=== PATIENT | female | born 1960 | race American Indian/Alaskan Native ===

== ENCOUNTER 2018-05-16 07:04 | Day surgery (SDC) | payer OTHER ==
[2018-05-15 12:00] VITALS: BMI 28.9
[2018-05-16 08:36] VITALS: TEMP 97.1
[2018-05-16 09:29] VITALS: BP 121/78; PULSE 55
--- NOTE | 2018-05-19 15:12 | PATH ---
Surgical Pathology Report Patient Name: MISSY ROMANO [facility]. Rec. #: [id number] /Age/Gender: 1960 (Age: 57) / F Account: [id number] Location: U-ENDOSCOPY Taken: 05/16/2018 Received: 05/16/2018 Reported: 05/19/2018 Physicians: Dixon Brown M.D. Specimen(s) Received A: 2ND PORTION DUODENUM AND BULB B: ANTRUM C: MID TRANSVERSE COLON D: DESCENDING COLON Clinical History Occult GI bleed, colon cancer screening Postoperative diagnosis: Gastritis, colon polyps, diverticulosis Final Diagnosis A. DUODENUM, SECOND PORTION AND DUODENAL BULB, BIOPSY: DUODENAL MUCOSA WITHOUT SIGNIFICANT PATHOLOGIC FINDINGS. B. STOMACH, ANTRUM, BIOPSY: GASTRIC ANTRAL MUCOSA WITH MILD CHRONIC GASTRITIS. IMMUNOHISTOCHEMICAL STAIN FOR H. PYLORI IS NEGATIVE. C. MID TRANSVERSE COLON, POLYPS, BIOPSY: POLYPOID COLONIC MUCOSA WITH FOCAL SUPERFICIAL HYPERPLASTIC FEATURES. D. DESCENDING COLON, POLYPS, BIOPSY: HYPERPLASTIC POLYP(S). Electronically Signed Katherin Valenzuela M.D. Gross Description A. Received in formalin, labeled "biopsy second portion of duodenum and duodenal bulb" are 3 valadez, irregular portions of soft tissue averaging 0.4 cm. in greatest dimension. The specimens are submitted in toto in one cassette. B. Received in formalin, labeled "biopsy antrum" are 4 valadez, irregular portions of soft tissue ranging from 0.2-0.4 cm. in greatest dimension. The specimens are submitted in toto in one cassette. C. Received in formalin, labeled "biopsy mid transverse colon polyps" are 4 valadez, irregular portions of soft tissue ranging from 0.1-0.4 cm. in greatest dimension. The specimens are submitted in toto in one cassette. D. Received in formalin, labeled "polyps descending colon" are 6 valadez, irregular portions of soft tissue ranging from 0.1-0.6 cm. in greatest dimension. The specimens are submitted in toto in one cassette. 05/16/201805/16/2018
== END 2018-05-16 09:38 | disposition home or self-care (01) ==
LOC: JASU-ENDO 07:04
PROVIDERS: ATTEND Internal Medicine Gastroenterology
PROC: 0DBL8ZX Excision of Transverse Colon, Via Natural or Artificial Opening Endoscopic, Diagnostic (ICD-10-PCS; 2018-05-16)
PROC: 0DB68ZX Excision of Stomach, Via Natural or Artificial Opening Endoscopic, Diagnostic (ICD-10-PCS; 2018-05-16)
PROC: 0DBM8ZX Excision of Descending Colon, Via Natural or Artificial Opening Endoscopic, Diagnostic (ICD-10-PCS; principal; 2018-05-16 08:00)
DX: D12.4 Benign neoplasm of descending colon (principal); D12.3 Benign neoplasm of transverse colon; K57.30 Diverticulosis of large intestine without perforation or abscess without bleeding; K29.70 Gastritis, unspecified, without bleeding
CPT/HCPCS: 88305-TC; 88342-TC

== ENCOUNTER 2019-03-30 23:04 | Inpatient (IN) | payer OTHER ==
[2019-03-30 23:26] VITALS: BMI 25.6
--- NOTE | 2019-03-31 00:17 | PDOC ---
Attending Attestation - Resident Resident Name: Wilder Rodriguez - ED Attending Attestation I have performed the following: I have examined & evaluated the patient, The case was reviewed & discussed with the resident, I agree w/resident's findings & plan - HPI HPI: 03/31/19 03:15 see resident hpi - Physicial Exam PE: 03/31/19 03:15 see resident exam - Medical Decision Making 03/31/19 03:15 58-year-old female with excessive vomiting throughout the afternoon after receiving IV contrast this morning for a CT of the chest performed at an outside facility Labs consistent with volume depletion with hyponatremia In regards to facial swelling and possible allergic reaction, patient's airway is patent, she is comfortably sleeping on reevaluation after steroids and antihistamines at 3 AM IV fluids infusing We will admit for further management
[2019-03-31] MEDS ORDERED: SODIUM CHLORIDE 0.9% 500 ML INFUS.BAG IV ONE (00:35)
[2019-03-31] MEDS ORDERED: METOCLOPRAMIDE HCL INJECTION 10 MG/2 ML VIAL IVPUSH ONE (00:35)
[2019-03-31] MEDS ORDERED: MAG HYDROX/AL HYDROX/SIMETH 30 ML UNIT-DOSE CUP PO PRN (00:35)
[2019-03-31] MEDS ORDERED: FAMOTIDINE 20 MG/50 ML IVPB 20 MG/50 ML MG IVPB ONE ×2 (00:35→00:39)
[2019-03-31] MEDS ORDERED: METOCLOPRAMIDE HCL INJECTION 10 MG/2 ML VIAL ONE (00:39)
[2019-03-31] MEDS ORDERED: MAG HYDROX/AL HYDROX/SIMETH 30 ML UNIT-DOSE CUP ONE (00:39)
[2019-03-31] MEDS ORDERED: DEXAMETHASONE SOD PHOSPHATE 10 MG/1 ML VIAL IVPUSH ONE (01:05)
--- NOTE | 2019-03-31 01:09 | PDOC ---
History of Present Illness - General Chief Complaint: Vomiting/Diarrhea Stated Complaint: VOMITING/DIARRHEA Time Seen by Provider: 03/31/19 00:13 History Source: Patient - History of Present Illness Initial Comments: 58F PMH NIDDM, HTN, HLD presenting with nausea, nbnb vomiting, and diarrhea since 3pm today. Pt had cardiac CT w/ contrast at [facility] this AM and is concerned about a contrast reaction; called on-call cigar packer and sorter who told her to proceed to ED. notably, pt did eat lunch and a snack at 11:30 and 2pm; N/V/D started at 3pm w/ vomiting first then diarrhea shortly after. Denies abd pain, f /c, cp/sob, dysuria. Son at bedside notes patient has rash/redness on the cheeks under her eyes. Allergy to Zofran Past History - Past Medical History Allergies/Adverse Reactions: Allergies Allergy/AdvReac Type Severity Reaction Status Date / Time ondansetron [From Zofran] Allergy HALLUCINATI Verified 03/30/19 23:23 ON Home Medications: Ambulatory Orders Ibuprofen [Advil -] 800 mg PO PRN PRN 02/04/12 Tramadol HCl 50 mg PO PRN PRN 03/23/15 Valsartan/Hydrochlorothiazide [Diovan Hct 160-25 mg Tablet] 1 combo PO DAILY 11/26 metFORMIN HCL [Metformin ER Osmotic] 1,500 mg PO BID 03/23/15 Aspirin [ASA -] 81 mg PO DAILY 05/15/18 Calcium Carbonate [Tums] 1 tab PO PRN PRN 05/15/18 Cholecalciferol (Vitamin D3) [Vitamin D -] 1,000 unit PO DAILY 05/15/18 Esomeprazole Magnesium [Nexium 24Hr] 40 mg PO DAILY 05/15/18 Fenofibric Acid [Trilipix -] 135 mg PO DAILY 05/15/18 Magnesium Oxide [Magnesium] 400 mg PO DAILY 05/15/18 Multivitamin with Iron [Multivitamins with Iron] 1 tab PO DAILY 05/15/18 Naproxen Sodium [Aleve] 1 tab PO DAILY 05/15/18 Pravastatin Sodium 20 mg PO DAILY 05/15/18 Ranitidine [Zantac -] 150 mg PO BID 05/15/18 Rizatriptan Benzoate [Maxalt] 10 mg PO PRN PRN 05/15/18 Simethicone [Gas Relief] 125 mg PO PRN PRN 05/15/18 Levothyroxine [Synthroid -] 1 tab PO ASDIR 05/16/18 Levothyroxine [Synthroid -] 100 mcg PO DAILY 05/16/18 Mag Carb/Aluminum Hydrox/Algin [Gaviscon Liquid] 30 ml PO PRN PRN #1 oral.susp 05/16/18 Metoprolol Succinate 75 mg PO DAILY 05/16/18 Pantoprazole Sodium [Protonix -] 40 mg PO HS #30 tablet.ec 05/16/18 Amlodipine Besylate 2.5 mg PO HS 04/01/19 Cancer: Yes (THYROID) Cardiac Disorders: Yes COPD: No Diabetes: Yes (NON INSULIN DIABETES) GI Disorders: Yes (ENTERITIS,DIVERTICULOSIS) HTN: Yes Hypercholesterolemia: Yes Liver Disease: Yes (NAFLD) Thyroid Disease: Yes - Surgical History Abdominal Surgery: Yes (HERNIA REPAIR) - Psycho Social/Smoking Cessation Hx Smoking History: Never smoked Have you smoked in the past 12 months: No Hx Alcohol Use: No Drug/Substance Use Hx: No Substance Use Type: None Review of Systems - Review of Systems Able to Perform ROS?: Yes Comments:: CONSTITUTIONAL: Denies F / C HEENT: Denies headache RESP: Denies SOB, cough CARD: Denies chest pain, palpitations GI: Endorses n/v/d. Denies abdominal pain : Denies dysuria SKIN: endorses redness vs rashes of cheeks b/l NEURO: Denies numbness, tingling, weakness MSK: Denies back pain *Physical Exam - Vital Signs Last Vital Signs Temp Pulse Resp BP Pulse Ox 98.3 F 66 20 126/71 98 03/30/19 23:19 03/30/19 23:45 03/30/19 23:45 03/30/19 23:45 03/30/19 23:45 - Physical Exam GEN: NAD, comfortable. AAOx3. HEENT: NC/AT, EOMI, PERRL. No facial asymmetry. Moist mucous membranes, no uvular edema. Normal voice. Supple neck w/ FROM. Redness of b/l cheeks under eyes. CV: S1/S2, RRR, no m/r/g LUNG: CTAB, no wheezes, crackles, rales, rhonchi. GI: NBNB Vomitus. Soft, ndnt, +BS, no guarding, no rebound. No masses. MSK: No LE edema. No obvious deformities of all extremities. SKIN: Warm, dry, no rashes appreciated. PSYCH: Normal mood and affect. NEURO: Moving all extremities well. ambulates w/ normal gait. ED Treatment Course - LABORATORY CBC & Chemistry Diagram: 04/01/19 08:20 04/01/19 08:20 Medical Decision Making - Medical Decision Making 03/31/19 01:08 58F PMH NIDDM, HTN, HLD w/ n/v/d concerned about contrast rxn. Benign exam. Less likely contrast rxn given timing and sx. possibly food poisoning. - cbc, cmp - fluids - reglan, benadryl, pepcid, maalox, steroids 03/31/19 03:18 EKG 2345 HR 66 MN 140 QRS 84 QTc 448 NSR Hyponatremia Hypochloremia Electrolyte imbalances likely 2/2 GI sx admit for rehydration and serial BMP 03/31/19 03:27 PCP office paged; awaiting callback 03/31/19 04:15 endorsed admitted Discharge - Discharge Information Problems reviewed: Yes Clinical Impression/Diagnosis: Vomiting and diarrhea, Hyponatremia - Admission Yes - Follow up/Referral - Patient Discharge Instructions - Post Discharge Activity
[2019-03-31 01:37] LABS: BASO % 0.5 % (0-2.0); EOS % 0.6 % (0-4.5); HEMATOCRIT 41.2 % (32.4-45.2); HEMOGLOBIN 13.7 GM/dL (10.7-15.3); LYMPH % 32.1 % (8-40); MCH 26.4 pg (25.7-33.7); MCHC 33.4 g/dl (32.0-36.0); MEAN CELL VOLUME 79.1 fl (80-96); MEAN PLT VOLUME 8.5 fl (7.5-11.1); MONO % 4.5 % (3.8-10.2); NEUT % 62.3 % (42.8-82.8); PLATELET COUNT 366 K/MM3 (134-434); RBC 5.21 M/mm3 (3.60-5.2); WHITE BLOOD COUNT 13.3 K/mm3 (4.0-10.0)
[2019-03-31] MEDS ORDERED: DEXAMETHASONE SOD PHOSPHATE 10 MG/1 ML VIAL ONE (01:45)
[2019-03-31 02:37] LABS: BILIRUBIN,TOTAL 0.6 mg/dL (0.2-1); BLOOD UREA NITROGEN 8.6 mg/dL (7-18); CALCIUM 8.7 mg/dL (8.5-10.1); CREATININE 0.9 mg/dL (0.55-1.3); POTASSIUM 3.8 mmol/L (3.5-5.1); TOT PROT 7.4 g/dl (6.4-8.2)
[2019-03-31] MEDS ORDERED: PATIENT'S OWN MEDICATION (NON-FORMULARY) (Rizatriptan Benzoate [Maxalt] 10 MG) PO PRN (07:38)
[2019-03-31] MEDS ORDERED: traMADol HCL 50 MG TABLET PO PRN (07:38)
[2019-03-31] MEDS ORDERED: LEVOTHYROXINE NA 50 MCG TABLET (FP) PO SCH ×2 (07:45→08:40)
[2019-03-31] MEDS ORDERED: METOCLOPRAMIDE HCL INJECTION 10 MG/2 ML VIAL IVPUSH PRN (07:49)
[2019-03-31] MEDS ORDERED: LEVOTHYROXINE NA 25 MCG TABLET (FP) ONE (08:26)
[2019-03-31] MEDS ORDERED: LEVOTHYROXINE NA 100 MCG TABLET (FP) PO SCH (08:30)
[2019-03-31] MEDS: SODIUM CHLORIDE 1,000 ML IV SCH (08:35)
[2019-03-31 08:38] LABS: BASO % 0.6 % (0-2.0); EOS % 0.1 % (0-4.5); HEMATOCRIT 41.6 % (32.4-45.2); HEMOGLOBIN 13.8 GM/dL (10.7-15.3); LYMPH % 18.3 % (8-40); MCH 26.1 pg (25.7-33.7); MCHC 33.3 g/dl (32.0-36.0); MEAN CELL VOLUME 78.2 fl (80-96); MEAN PLT VOLUME 8.4 fl (7.5-11.1); MONO % 1.1 % (3.8-10.2); NEUT % 79.9 % (42.8-82.8); PLATELET COUNT 380 K/MM3 (134-434); RBC 5.31 M/mm3 (3.60-5.2); RDW 16.1 % (11.6-15.6); WHITE BLOOD COUNT 10.9 K/mm3 (4.0-10.0)
[2019-03-31 09:09] LABS: BLOOD UREA NITROGEN 7.4 mg/dL (7-18); CALCIUM 8.9 mg/dL (8.5-10.1); CREATININE 0.9 mg/dL (0.55-1.3); MAGNESIUM 1.9 mg/dL (1.8-2.4)
--- NOTE | 2019-03-31 09:17 | EKG ---
Test Reason : Blood Pressure : / mmHG Vent. Rate : 066 BPM Atrial Rate : 066 BPM P-R Int : 140 ms QRS Dur : 084 ms QT Int : 428 ms P-R-T Axes : 045 029 033 degrees QTc Int : 448 ms POOR DATA QUALITY, INTERPRETATION MAY BE ADVERSELY AFFECTED NORMAL SINUS RHYTHM CANNOT RULE OUT ANTERIOR INFARCT , AGE UNDETERMINED ABNORMAL ECG WHEN COMPARED WITH ECG OF 10-JAN-2010 11:13, NONSPECIFIC T WAVE ABNORMALITY NO LONGER EVIDENT IN INFERIOR LEADS Confirmed by Giorgio Dominguez MD ([id number]) on 03/31/2019 9:16:53 AM Referred By: Confirmed By:Giorgio Dominguez MD
[2019-03-31] MEDS ORDERED: INSULIN (NOVOLOG) ASPART 100 UNITS/ML 10ML VIAL ONE (12:28)
[2019-03-31] MEDS: VALSARTAN 160 MG TABLET (UD) PO SCH (12:35)
[2019-03-31] MEDS: MAGNESIUM OXIDE 400 MG TABLET (FP) PO SCH (12:36)
[2019-03-31] MEDS: PANTOPRAZOLE SODIUM 40 MG VIAL IVPUSH SCH (12:36)
[2019-03-31] MEDS: HYDROCHLOROTHIAZIDE 25 MG TABLET (FP) PO SCH (12:36)
[2019-03-31] MEDS: INSULIN SLIDING SCALE (NOVOLOG) 1 VIAL SQ SCH ×3 (12:36→23:14)
--- NOTE | 2019-03-31 16:07 | HP ---
DATE OF ADMISSION: 03/31/2019 DATE OF DICTATION: 03/31/2019 This is a 58-year-old female being followed by Dr. Vaz. Last night she came to the emergency room with complaints of abdominal pain, vomiting and diarrhea. She states she had a CAT scan done with contrast for cardiac catheterization purpose. After getting the dye, she started throwing up and had diarrhea. After giving Zofran and IV fluids in the ER, her abdominal pain and diarrhea subsided. This morning when I saw her, she was comfortable in the bed. She is also known to have hypertension and diabetes, on multiple medications. PHYSICAL EXAMINATION: Vital Signs: Today blood pressure is 130/70, pulse 78, respirations 20, temperature 98. HEENT: Unremarkable. Neck: Supple. No JVD. Lungs: Clear. Heart: S1 and S2 normal. No S3 or S4. Abdomen: Soft, nontender. No rebound tenderness. Extremities: Legs with no edema. Rectal: Examination not done. Neurological: Examination grossly normal. Laboratory results are normal. IMPRESSION: Acute gastroenteritis. PLAN: diet. Continue IV fluids. I will follow. DEAN ELISE M.D. [id number]
[2019-04-01] MEDS ORDERED: PIPERACILLIN/TAZOB 4.5 GM 4.5 GM/100 ML BAG IVPB ONE (05:11)
[2019-04-01] MEDS: INSULIN SLIDING SCALE (NOVOLOG) 1 VIAL SQ SCH ×2 (06:24→10:00)
[2019-04-01 08:50] LABS: CALCIUM 8.6 mg/dL (8.5-10.1); CREATININE 0.9 mg/dL (0.55-1.3); POTASSIUM 3.9 mmol/L (3.5-5.1)
[2019-04-01 08:51] LABS: BASO % 0.4 % (0-2.0); EOS % 0.4 % (0-4.5); HEMOGLOBIN 12.4 GM/dL (10.7-15.3); LYMPH % 31.8 % (8-40); MCH 26.2 pg (25.7-33.7); MCHC 32.7 g/dl (32.0-36.0); MEAN CELL VOLUME 80.2 fl (80-96); MEAN PLT VOLUME 8.6 fl (7.5-11.1); MONO % 6.5 % (3.8-10.2); NEUT % 60.9 % (42.8-82.8); PLATELET COUNT 352 K/MM3 (134-434); RBC 4.74 M/mm3 (3.60-5.2); RDW 16.2 % (11.6-15.6); WHITE BLOOD COUNT 16.9 K/mm3 (4.0-10.0)
--- NOTE | 2019-04-01 09:55 | DS ---
Physical Examination Vital Signs: Vital Signs Temperature 98.0 F 04/01/19 06:41 Pulse Rate 64 04/01/19 06:41 Respiratory Rate 18 04/01/19 06:41 Blood Pressure 110/56 L 04/01/19 06:41 O2 Sat by Pulse Oximetry (%) 96 04/01/19 06:41 Findings/Remarks: Admitted with vomiting and diarrhea ,possible allergic reaction to IV iodine for cardiac cath Constitutional: Yes: No Distress Eyes: Yes: WNL HENT: Yes: WNL Neck: Yes: WNL Cardiovascular: Yes: WNL Respiratory: Yes: WNL Gastrointestinal: Yes: Normal Bowel Sounds ...Rectal Exam: Yes: Deferred Renal/: Yes: WNL Breast(s): Yes: WNL Edema: No Neurological: Yes: Alert, Unresponsive ...Motor Strength: WNL Labs: CBC, BMP 04/01/19 08:20 04/01/19 08:20 Discharge Summary Problems reviewed: Yes Reason For Visit: VOMITING AND DIARRHEA,HYPONATREMIA Current Active Problems Hyponatremia (Acute) Vomiting and diarrhea (Acute) Condition: Improved - Instructions Referrals: Marisol Gomez MD [Primary Care Provider] - Disposition: HOME - Home Medications Comprehensive Discharge Medication List: Ambulatory Orders Ibuprofen [Advil -] 800 mg PO PRN PRN 02/04/12 Tramadol HCl 50 mg PO PRN PRN 03/23/15 Valsartan/Hydrochlorothiazide [Diovan Hct 160-25 mg Tablet] 1 combo PO DAILY 11/26 metFORMIN HCL [Metformin ER Osmotic] 1,500 mg PO BID 03/23/15 Aspirin [ASA -] 81 mg PO DAILY 05/15/18 Calcium Carbonate [Tums] 1 tab PO PRN PRN 05/15/18 Cholecalciferol (Vitamin D3) [Vitamin D -] 1,000 unit PO DAILY 05/15/18 Esomeprazole Magnesium [Nexium 24Hr] 40 mg PO DAILY 05/15/18 Fenofibric Acid [Trilipix -] 135 mg PO DAILY 05/15/18 Magnesium Oxide [Magnesium] 400 mg PO DAILY 05/15/18 Multivitamin with Iron [Multivitamins with Iron] 1 tab PO DAILY 05/15/18 Naproxen Sodium [Aleve] 1 tab PO DAILY 05/15/18 Pravastatin Sodium 20 mg PO DAILY 05/15/18 Ranitidine [Zantac -] 150 mg PO BID 05/15/18 Rizatriptan Benzoate [Maxalt] 10 mg PO PRN PRN 05/15/18 Simethicone [Gas Relief] 125 mg PO PRN PRN 05/15/18 Levothyroxine [Synthroid -] 1 tab PO ASDIR 05/16/18 Levothyroxine [Synthroid -] 100 mcg PO DAILY 05/16/18 Mag Carb/Aluminum Hydrox/Algin [Gaviscon Liquid] 30 ml PO PRN PRN #1 oral.susp 05/16/18 Metoprolol Succinate 75 mg PO DAILY 05/16/18 Pantoprazole Sodium [Protonix -] 40 mg PO HS #30 tablet.ec 05/16/18 Amlodipine Besylate 2.5 mg PO HS 04/01/19
[2019-04-01] MEDS: MAGNESIUM OXIDE 400 MG TABLET (FP) PO SCH (10:00)
[2019-04-01] MEDS: HYDROCHLOROTHIAZIDE 25 MG TABLET (FP) PO SCH (10:00)
[2019-04-01] MEDS: VALSARTAN 160 MG TABLET (UD) PO SCH (10:00)
[2019-04-01] MEDS ORDERED: MAGNESIUM OXIDE 400 MG TABLET (FP) ONE (10:02)
[2019-04-01] MEDS ORDERED: HYDROCHLOROTHIAZIDE 25 MG TABLET (FP) ONE (10:02)
[2019-04-01] MEDS ORDERED: VALSARTAN 80 MG TABLET (UD) ONE (10:03)
[2019-04-01] MEDS: PANTOPRAZOLE SODIUM 40 MG VIAL IVPUSH SCH (10:18)
[2019-04-01] MEDS: SODIUM CHLORIDE 1,000 ML IV SCH (10:19)
[2019-04-01 10:21] VITALS: BP 129/71; PULSE 65; TEMP 97.7
== END 2019-04-01 10:30 | disposition home or self-care (01) | DRG 641 ==
LOC: JER 23:04 → JERBED 03-31 03:18
PROVIDERS: ADMIT Internal Medicine; ATTEND Internal Medicine
DX: E87.1 Hypo-osmolality and hyponatremia (principal); R22.0 Localized swelling, mass and lump, head; T50.8X5A Adverse effect of diagnostic agents, initial encounter; R11.10 Vomiting, unspecified; R19.7 Diarrhea, unspecified; I10 Essential (primary) hypertension; E78.5 Hyperlipidemia, unspecified; E11.9 Type 2 diabetes mellitus without complications
CPT/HCPCS: 36415; 80048; 80053; 82436; 82962; 83735; 84133; 84300; 85025; 93005; 93010; 99285-25; J1100; J7030